=== PATIENT | male | born 1955 | race Caucasian/White ===

== ENCOUNTER 2022-05-10 08:45 | Emergency (ER) | payer MEDICARE ==
[~2022-05-10] VITALS: Ht 175.3 cm; Wt 99.4 kg
[2022-05-10 09:34] VITALS: BP 167/90
[2022-05-10] MEDS ORDERED: LIDOCAINE 1% HCL (LOCAL ANESTH.) INJ 20ML MDV IJ ONE (09:45)
[2022-05-10] MEDS ORDERED: BACDST PO (10:01)
== END 2022-05-10 10:18 | disposition home or self-care (01) ==
LOC: ER 08:45
DX: L02.31 Cutaneous abscess of buttock (principal); I10 Essential (primary) hypertension
CPT/HCPCS: 10060; 87077; 87186; 87205; 99283; J2001

== ENCOUNTER 2022-05-12 08:58 | Emergency (ER) | payer MEDICARE ==
[~2022-05-12] VITALS: Ht 175.3 cm; Wt 98.5 kg
[~2022-05-12 08:58] MED LIST: BACDST PO
[2022-05-12 09:06] VITALS: BP 126/86
== END 2022-05-12 10:43 | disposition left against medical advice (07) ==
LOC: ER 08:58
DX: L02.91 Cutaneous abscess, unspecified (principal); Z53.21 Procedure and treatment not carried out due to patient leaving prior to being seen by health care provider

== ENCOUNTER 2022-05-15 08:40 | Emergency (ER) | payer MEDICARE ==
[~2022-05-15] VITALS: Ht 175.3 cm; Wt 100.6 kg
[2022-05-15 09:40] VITALS: BP 134/86
== END 2022-05-15 09:51 | disposition home or self-care (01) ==
LOC: ER 08:40
DX: I10 Essential (primary) hypertension (principal); Z88.8 Allergy status to other drugs, medicaments and biological substances; Z48.817 Encounter for surgical aftercare following surgery on the skin and subcutaneous tissue